=== PATIENT | male | born 1975 | race Caucasian/White ===

== ENCOUNTER 2024-06-10 23:59 | Inpatient (IN) | payer OTHER ==
[~2024-06-10] VITALS: Ht 177.8 cm; Wt 140.0 kg
[2024-06-11] VITALS (9 sets, daily range): BP systolic 132–178; BP diastolic 62–96; PULSE 104–116; RESP 20–29; TEMP 99.8–99.9; O2SAT 96–98
[2024-06-11 01:04] LABS: BASOPHILS # (AUTO) 0.1 X10'3 (0-0.2); BASOPHILS % (AUTO) 0.6 % (0-1); EOSINOPHILS # (AUTO) 0.2 X10'3 (0-0.9); HEMATOCRIT 31.3 % (42.0-52.0); HEMOGLOBIN 10.8 g/dl (14.0-17.9); LYMPHOCYTES # (AUTO) 0.9 X10'3 (1.1-4.8); LYMPHOCYTES % (AUTO) 9.3 % (21-51); MEAN CORPUSCULAR HEMOGLOBIN 38.3 PG (27.0-31.0); MEAN CORPUSCULAR HGB CONC 34.4 g/dL (33.0-36.5); MEAN CORPUSCULAR VOLUME 111.4 FL (78-98); MEAN PLATELET VOLUME 9.5 FL (7.4-10.4); MONOCYTES # (AUTO) 0.8 X10'3 (0-0.9); MONOCYTES % (AUTO) 8.5 % (2-12); NEUTROPHILS # (AUTO) 7.3 X10'3 (1.8-7.7); NEUTROPHILS % (AUTO) 79.6 % (42-75); PLATELET COUNT 110 X10'3 (140-440); RED BLOOD COUNT 2.81 X10'6 (4.70-6.10); WHITE BLOOD COUNT 9.1 X10'3 (4.5-11.0)
[2024-06-11] MEDS ORDERED: morphine 2 MG/ML inj. syringe IV PRN ×2 (01:35)
[2024-06-11] MEDS ORDERED: magnesium sulf-water 4G/100mL 100 ML IV PRN (01:35)
[2024-06-11] MEDS ORDERED: ondansetron/PF 4mg/2ml inj IV PRN (01:35)
[2024-06-11] MEDS ORDERED: magnesium hydroxide 30ml (MOM) UD suspension PO PRN (01:35)
[2024-06-11] MEDS ORDERED: acetaminophen 325mg tablet PO PRN (01:35)
[2024-06-11] MEDS ORDERED: mag hydrox/Alum hydrox/simeth 30ml oral suspension PO PRN (01:35)
[2024-06-11 01:47] LABS: ALANINE AMINOTRANSFERASE 46 U/L (12-78); ALBUMIN 2.5 G/DL (3.4-5.0); ALKALINE PHOSPHATASE 248 IU/L (46-116); ANION GAP 9 (8-16); ASPARTATE AMINO TRANSFERASE 201 U/L (10-37); BILIRUBIN,TOTAL 10.8 MG/DL (0.1-1.0); BLOOD UREA NITROGEN 6 MG/DL (7-18); BUN/CREATININE RATIO 6.1 (10.0-20.0); CALCIUM 8.1 MG/DL (8.5-10.1); CHLORIDE 97 MMOL/L (99-107); CREATININE 0.98 MG/DL (0.60-1.10); GLUCOSE 121 MG/DL (70-104); POTASSIUM 3.2 MMOL/L (3.5-5.1); SODIUM 136 MMOL/L (135-145); TOTAL CARBON DIOXIDE 30.2 MMOL/L (24-32); eCRCL 94 ML/MIN; eGFR 81 ML/MIN
[2024-06-11 01:49] LABS: ALBUMIN/GLOBULIN RATIO 0.6 (1.1-1.5)
[2024-06-11] MEDS: PERFLUTREN PROTEIN-A MICROSPHR (Optison) 0.22 MG/ML 3ML VIAL IV ONE (01:53)
[2024-06-11] MEDS: normal saline 1000ml 1,000 ML IV SCH (02:19)
[2024-06-11 02:28] LABS: MAGNESIUM 1.1 MG/DL (1.5-2.4)
[2024-06-11 02:33] LABS: APTT 33 SECONDS (22-32); INR 1.7 INR; PROTHROMBIN TIME 17.2 SECONDS (9.0-12.0)
[2024-06-11 02:46] LABS: HEMOGLOBIN A1C 5.1 % (4.5-6.2); POTASSIUM 3.2 MMOL/L (3.5-5.1)
[2024-06-11 03:18] LABS: PLATELET ESTIMATE DECREASED
[2024-06-11 03:19] LABS: POLYCHROMASIA FEW
[2024-06-11 03:20] LABS: TARGET CELLS FEW
[2024-06-11] MEDS ORDERED: LORazepam 2 mg/ml vial IV PRN (04:05)
[2024-06-11] MEDS ORDERED: dextrose 50%-water 50ml dispensing syringe IV PRN (04:05)
[2024-06-11] MEDS ORDERED: haloperidol lactate 5mg/ml inj IM PRN (04:05)
[2024-06-11] MEDS: spironolactone 25 MG tablet PO SCH (04:10)
[2024-06-11] MEDS: furosemide 10 MG/1 ML 10ml inj IV SCH (05:12)
[2024-06-11] MEDS: pantoprazole 40 MG vial IV SCH (05:16)
[2024-06-11] MEDS: potassium Cl 40MEQ/1/2NS 520ml 520 ML IV PRN (05:17)
[2024-06-11] MEDS: magnesium sulf-water 2g/50mL 50 ML IV PRN (05:20)
[2024-06-11] MEDS ORDERED: phytonadione inj. 1 MG in normal saline 100ml IV soln 100 ML IV ONE (05:55)
[2024-06-11 06:15] LABS: BILIRUBIN,URINE LARGE (Neg); CLARITY,URINE CLEAR (Clear); GLUCOSE, URINE NEGATIVE (Neg); KETONES,URINE TRACE mg/dl (Neg); LEUKOCYTE ESTERASE ,URINE NEGATIVE (Neg); NITRITES, URINE NEGATIVE (Neg); OCCULT BLOOD,URINE NEGATIVE (Neg); PH,URINE 8.5 (4.8-8.0); PROTEIN,URINE TRACE mg/dl (Neg)
[2024-06-11 06:24] LABS: COLOR,URINE AMBER (Yellow); UA COLLECTION TYPE CLN CATCH MIDSTREAM
[2024-06-11 06:28] LABS: BACTERIA,URINE NONE SEEN /HPF (Neg); RBC,URINE NONE SEEN /HPF (0-2); SQUAMOUS EPITHELIAL CELL,UR MODERATE /LPF (FEW); WBC,URINE NONE SEEN /HPF (0-4)
[2024-06-11 06:33] LABS: URINE AMPHETAMINE SCREEN NEGATIVE (Neg); URINE BARBITUATE SCREEN NEGATIVE (Neg); URINE BENZODIAZEPINES SCREEN NEGATIVE (Neg); URINE CANNABINOID SCREEN NEGATIVE (Neg); URINE COCAINE SCREEN NEGATIVE (Neg); URINE METHADONE SCREEN NEGATIVE (Neg); URINE OPIATE SCREEN NEGATIVE (Neg); URINE PHENCYCLIDINE SCREEN NEGATIVE (Neg)
[2024-06-11 07:43] LABS: THYROID STIMULATING HORMONE 31.49 ulU/ml (0.34-4.50)
[2024-06-11 07:53] LABS: ETHANOL < 10 MG/DL (<10)
[2024-06-11] MEDS: K and/or MAG REPLACEMENT MC SCH (08:00)
[2024-06-11] MEDS: thiamine 100mg/ml 2ml inj. IV SCH (08:18)
[2024-06-11] MEDS: docusate sod 100mg capsule PO SCH (08:18)
[2024-06-11] MEDS: folic acid 1mg/0.2ml inj IV SCH (09:20)
[2024-06-11] MEDS: MULTIVIT-MIN/FERROUS GLUCONATE 9 MG/15 ML LIQUID PO SCH (09:20)
[2024-06-11 11:48] LABS: BASOPHILS # (AUTO) 0.1 X10'3 (0-0.2); BASOPHILS % (AUTO) 0.7 % (0-1); EOSINOPHILS # (AUTO) 0.3 X10'3 (0-0.9); HEMATOCRIT 30.9 % (42.0-52.0); HEMOGLOBIN 10.6 g/dl (14.0-17.9); LYMPHOCYTES # (AUTO) 0.7 X10'3 (1.1-4.8); LYMPHOCYTES % (AUTO) 7.2 % (21-51); MEAN CORPUSCULAR HEMOGLOBIN 38.5 PG (27.0-31.0); MEAN CORPUSCULAR HGB CONC 34.2 g/dL (33.0-36.5); MEAN CORPUSCULAR VOLUME 112.4 FL (78-98); MEAN PLATELET VOLUME 8.8 FL (7.4-10.4); NEUTROPHILS # (AUTO) 7.5 X10'3 (1.8-7.7); NEUTROPHILS % (AUTO) 79.1 % (42-75); PLATELET COUNT 89 X10'3 (140-440); RED BLOOD COUNT 2.75 X10'6 (4.70-6.10); WHITE BLOOD COUNT 9.5 X10'3 (4.5-11.0)
[2024-06-11 11:57] LABS: ALANINE AMINOTRANSFERASE 44 U/L (12-78); ALBUMIN 2.5 G/DL (3.4-5.0); ALKALINE PHOSPHATASE 238 IU/L (46-116); ANION GAP 5 (8-16); ASPARTATE AMINO TRANSFERASE 195 U/L (10-37); BILIRUBIN,TOTAL 10.4 MG/DL (0.1-1.0); BLOOD UREA NITROGEN 6 MG/DL (7-18); BUN/CREATININE RATIO 6.5 (10.0-20.0); CHLORIDE 98 MMOL/L (99-107); CREATININE 0.92 MG/DL (0.60-1.10); GLUCOSE 110 MG/DL (70-104); SODIUM 134 MMOL/L (135-145); TOTAL CARBON DIOXIDE 31.4 MMOL/L (24-32); eCRCL 100 ML/MIN; eGFR 87 ML/MIN
[2024-06-11 12:00] LABS: ALBUMIN/GLOBULIN RATIO 0.6 (1.1-1.5); POTASSIUM 3.5 MMOL/L (3.5-5.1)
[2024-06-11] MEDS: magnesium Cl slow-release 64mg tablet PO PRN (12:21)
[2024-06-11] MEDS ORDERED: MULT-1085 PO (13:04)
[2024-06-11] MEDS ORDERED: LEVO150C4 PO (13:04)
[2024-06-11] MEDS: furosemide 40mg/4ml inj IV SCH (20:55)
[2024-06-12 07:14] LABS: BASOPHILS # (AUTO) 0.1 X10'3 (0-0.2); BASOPHILS % (AUTO) 0.7 % (0-1); EOSINOPHILS # (AUTO) 0.4 X10'3 (0-0.9); EOSINOPHILS % (AUTO) 4.2 % (0-6); HEMATOCRIT 29.6 % (42.0-52.0); LYMPHOCYTES # (AUTO) 0.9 X10'3 (1.1-4.8); LYMPHOCYTES % (AUTO) 8.9 % (21-51); MEAN CORPUSCULAR HEMOGLOBIN 38.4 PG (27.0-31.0); MEAN PLATELET VOLUME 9.1 FL (7.4-10.4); MONOCYTES # (AUTO) 0.9 X10'3 (0-0.9); MONOCYTES % (AUTO) 9.5 % (2-12); NEUTROPHILS # (AUTO) 7.4 X10'3 (1.8-7.7); NEUTROPHILS % (AUTO) 76.7 % (42-75); PLATELET COUNT 96 X10'3 (140-440); RED BLOOD COUNT 2.62 X10'6 (4.70-6.10); RED CELL DISTRIBUTION WIDTH 15.3 % (11.5-14.5); WHITE BLOOD COUNT 9.6 X10'3 (4.5-11.0)
[2024-06-12 08:00] VITALS: RESP 16; O2SAT 96
[2024-06-12] MEDS ORDERED: non-formulary drug (Multivitamin (Multi Vitamin Daily) 1 TAB) PO SCH (08:00)
[2024-06-12 08:09] LABS: ALANINE AMINOTRANSFERASE 34 U/L (12-78); ALBUMIN 2.2 G/DL (3.4-5.0); ALKALINE PHOSPHATASE 206 IU/L (46-116); ANION GAP 7 (8-16); ASPARTATE AMINO TRANSFERASE 157 U/L (10-37); BLOOD UREA NITROGEN 6 MG/DL (7-18); BUN/CREATININE RATIO 7.1 (10.0-20.0); CALCIUM 7.9 MG/DL (8.5-10.1); CHLORIDE 99 MMOL/L (99-107); CREATININE 0.84 MG/DL (0.60-1.10); GLUCOSE 100 MG/DL (70-104); HDL CHOLESTEROL 14 MG/DL (35-60); LDL CHOLESTEROL 106 MG/DL (50-100); MAGNESIUM 1.7 MG/DL (1.5-2.4); SODIUM 134 MMOL/L (135-145); TOTAL CARBON DIOXIDE 28.5 MMOL/L (24-32); eCRCL 110 ML/MIN; eGFR > 90 ML/MIN
[2024-06-12 08:12] LABS: ALBUMIN/GLOBULIN RATIO 0.5 (1.1-1.5); CHOL/HDL RATIO 11.8 (0.00-4.99); CHOLESTEROL 165 MG/DL (0-200); TOTAL PROTEIN 6.4 G/DL (6.4-8.2); TRIGLYCERIDES 177 MG/DL (20-135)
[2024-06-12 08:20] LABS: POTASSIUM 2.9 MMOL/L (3.5-5.1)
[2024-06-12] MEDS: levoTHYROXINE 75mcg tablet PO SCH (09:46)
[2024-06-12 15:30] VITALS: BP 138/88; PULSE 103; RESP 15; O2SAT 97
[2024-06-12 15:49] VITALS: BP 145/88; PULSE 102; RESP 16; O2SAT 97
[2024-06-12 16:40] LABS: GLUCOSE,BODY FLUID 105 MG/DL; LDH,BODY FLUID 105 U/L; TOTAL PROTEIN,BODY FLUID 2.7 G/DL
[2024-06-12 17:15] LABS: BF RBC COUNT 1515 /CU MM; BF WBC COUNT 129 /CU MM (0-1000); BFAPPEAR CLOUDY; BFCOLOR YELLOW; BFSOURCE ASCITES FLD; BFVOLUME 60 ML
[2024-06-12 17:16] LABS: LYMPHOCYTES,BODY FLUID 38 %; MONOCYTES,BODY FLUID 53 %; NEUTROPHILS,BODY FLUID 9 %
[2024-06-12 18:00] VITALS: BP 122/74; PULSE 107; RESP 25; TEMP 97.8; O2SAT 93
[2024-06-12] MEDS: potassium Cl 20 mEq SR tablet PO PRN (21:52)
[2024-06-12 22:00] VITALS: BP 121/64; PULSE 99; RESP 19; TEMP 97.3; O2SAT 94
[2024-06-13] VITALS (8 sets, daily range): BP systolic 106–135; BP diastolic 57–83; PULSE 93–107; RESP 16–20; TEMP 97.3–98.1; O2SAT 94–100
[2024-06-13 05:37] LABS: HBSAG SCREEN Negative (Negative); HEPATITIS C VIRUS ANTIBODY Non Reactive (Non Reactive)
[2024-06-13 06:38] LABS: BASOPHILS # (AUTO) 0.2 X10'3 (0-0.2); BASOPHILS % (AUTO) 1.6 % (0-1); EOSINOPHILS # (AUTO) 0.3 X10'3 (0-0.9); HEMATOCRIT 29.8 % (42.0-52.0); HEMOGLOBIN 10.3 g/dl (14.0-17.9); LYMPHOCYTES % (AUTO) 10.1 % (21-51); MEAN CORPUSCULAR HEMOGLOBIN 39.3 PG (27.0-31.0); MEAN CORPUSCULAR HGB CONC 34.5 g/dL (33.0-36.5); MEAN CORPUSCULAR VOLUME 113.8 FL (78-98); MEAN PLATELET VOLUME 8.7 FL (7.4-10.4); MONOCYTES # (AUTO) 1.1 X10'3 (0-0.9); MONOCYTES % (AUTO) 11.8 % (2-12); NEUTROPHILS % (AUTO) 73.5 % (42-75); PLATELET COUNT 96 X10'3 (140-440); RED BLOOD COUNT 2.61 X10'6 (4.70-6.10); RED CELL DISTRIBUTION WIDTH 15.4 % (11.5-14.5); WHITE BLOOD COUNT 9.5 X10'3 (4.5-11.0)
[2024-06-13 07:03] LABS: ALANINE AMINOTRANSFERASE 37 U/L (12-78); ALBUMIN 2.3 G/DL (3.4-5.0); ALKALINE PHOSPHATASE 206 IU/L (46-116); ANION GAP 10 (8-16); ASPARTATE AMINO TRANSFERASE 153 U/L (10-37); BILIRUBIN,TOTAL 9.6 MG/DL (0.1-1.0); BLOOD UREA NITROGEN 8 MG/DL (7-18); BUN/CREATININE RATIO 10.5 (10.0-20.0); CHLORIDE 97 MMOL/L (99-107); CREATININE 0.76 MG/DL (0.60-1.10); GLUCOSE 89 MG/DL (70-104); MAGNESIUM 1.6 MG/DL (1.5-2.4); POTASSIUM 3.3 MMOL/L (3.5-5.1); SODIUM 134 MMOL/L (135-145); TOTAL CARBON DIOXIDE 27.2 MMOL/L (24-32); eCRCL 121 ML/MIN; eGFR > 90 ML/MIN
[2024-06-13 07:12] LABS: ALBUMIN/GLOBULIN RATIO 0.5 (1.1-1.5); TOTAL PROTEIN 6.5 G/DL (6.4-8.2)
[2024-06-13] MEDS: potassium Cl 20 mEq SR tablet PO PRN (08:18)
[2024-06-13] MEDS: pantoprazole 40mg Tablet.DR PO SCH (08:18)
[2024-06-13 08:29] LABS: TOTAL CELLS COUNTED 100
[2024-06-13 08:30] LABS: HYPOCHROMASIA 1+; PLATELET ESTIMATE DECREASED
[2024-06-13] MEDS: furosemide 40mg/4ml inj IV SCH (16:47)
[2024-06-14 06:04] LABS: BASOPHILS # (AUTO) 0.1 X10'3 (0-0.2); BASOPHILS % (AUTO) 0.7 % (0-1); EOSINOPHILS # (AUTO) 0.3 X10'3 (0-0.9); EOSINOPHILS % (AUTO) 3.8 % (0-6); HEMATOCRIT 28.9 % (42.0-52.0); HEMOGLOBIN 9.8 g/dl (14.0-17.9); LYMPHOCYTES # (AUTO) 0.8 X10'3 (1.1-4.8); LYMPHOCYTES % (AUTO) 9.6 % (21-51); MEAN CORPUSCULAR HEMOGLOBIN 38.7 PG (27.0-31.0); MEAN CORPUSCULAR VOLUME 113.8 FL (78-98); MEAN PLATELET VOLUME 8.7 FL (7.4-10.4); MONOCYTES % (AUTO) 11.9 % (2-12); NEUTROPHILS # (AUTO) 6.5 X10'3 (1.8-7.7); PLATELET COUNT 106 X10'3 (140-440); RED BLOOD COUNT 2.54 X10'6 (4.70-6.10); RED CELL DISTRIBUTION WIDTH 15.2 % (11.5-14.5); WHITE BLOOD COUNT 8.8 X10'3 (4.5-11.0)
[2024-06-14 06:19] LABS: ALANINE AMINOTRANSFERASE 38 U/L (12-78); ALBUMIN 2.2 G/DL (3.4-5.0); ALKALINE PHOSPHATASE 203 IU/L (46-116); ANION GAP 8 (8-16); ASPARTATE AMINO TRANSFERASE 142 U/L (10-37); BILIRUBIN,TOTAL 9.5 MG/DL (0.1-1.0); BLOOD UREA NITROGEN 10 MG/DL (7-18); BUN/CREATININE RATIO 12.2 (10.0-20.0); CALCIUM 8.4 MG/DL (8.5-10.1); CHLORIDE 98 MMOL/L (99-107); CREATININE 0.82 MG/DL (0.60-1.10); GLUCOSE 97 MG/DL (70-104); MAGNESIUM 1.6 MG/DL (1.5-2.4); POTASSIUM 3.5 MMOL/L (3.5-5.1); SODIUM 132 MMOL/L (135-145); TOTAL CARBON DIOXIDE 26.3 MMOL/L (24-32); eCRCL 113 ML/MIN; eGFR > 90 ML/MIN
[2024-06-14 06:20] LABS: ALBUMIN/GLOBULIN RATIO 0.5 (1.1-1.5); TOTAL PROTEIN 6.5 G/DL (6.4-8.2)
[2024-06-14 08:00] VITALS: RESP 18; O2SAT 97
[2024-06-14] MEDS: predniSONE 20 mg tablet PO SCH (09:09)
[2024-06-14] MEDS: spironolactone 25 MG tablet PO SCH (09:13)
[2024-06-14 17:00] VITALS: BP 148/76; PULSE 97; RESP 22; TEMP 97.6; O2SAT 99
[2024-06-14 18:00] VITALS: BP 145/83; PULSE 95; RESP 18; TEMP 97.8; O2SAT 95
[2024-06-14 20:00] VITALS: RESP 18; O2SAT 95
[2024-06-14 22:00] VITALS: BP 127/78; PULSE 89; RESP 18; TEMP 97.4; O2SAT 96
[2024-06-15] VITALS (8 sets, daily range): BP systolic 116–135; BP diastolic 63–83; PULSE 89–99; RESP 16–20; TEMP 97.1–99.5; O2SAT 95–98
[2024-06-15 05:57] LABS: BASOPHILS % (AUTO) 0.4 % (0-1); EOSINOPHILS # (AUTO) 0.1 X10'3 (0-0.9); EOSINOPHILS % (AUTO) 0.8 % (0-6); HEMATOCRIT 29.5 % (42.0-52.0); LYMPHOCYTES # (AUTO) 0.9 X10'3 (1.1-4.8); LYMPHOCYTES % (AUTO) 9.4 % (21-51); MEAN CORPUSCULAR HEMOGLOBIN 38.4 PG (27.0-31.0); MEAN CORPUSCULAR HGB CONC 33.9 g/dL (33.0-36.5); MEAN CORPUSCULAR VOLUME 113.2 FL (78-98); MEAN PLATELET VOLUME 8.8 FL (7.4-10.4); MONOCYTES # (AUTO) 1.1 X10'3 (0-0.9); MONOCYTES % (AUTO) 11.8 % (2-12); NEUTROPHILS # (AUTO) 7.1 X10'3 (1.8-7.7); NEUTROPHILS % (AUTO) 77.6 % (42-75); PLATELET COUNT 117 X10'3 (140-440); WHITE BLOOD COUNT 9.2 X10'3 (4.5-11.0)
[2024-06-15 06:25] LABS: ALANINE AMINOTRANSFERASE 43 U/L (12-78); ALBUMIN 2.2 G/DL (3.4-5.0); ALKALINE PHOSPHATASE 203 IU/L (46-116); ANION GAP 5 (8-16); ASPARTATE AMINO TRANSFERASE 136 U/L (10-37); BILIRUBIN,TOTAL 8.7 MG/DL (0.1-1.0); BLOOD UREA NITROGEN 9 MG/DL (7-18); CALCIUM 8.7 MG/DL (8.5-10.1); CHLORIDE 98 MMOL/L (99-107); GLUCOSE 110 MG/DL (70-104); MAGNESIUM 1.9 MG/DL (1.5-2.4); POTASSIUM 3.6 MMOL/L (3.5-5.1); SODIUM 132 MMOL/L (135-145); TOTAL CARBON DIOXIDE 29.3 MMOL/L (24-32); eCRCL 103 ML/MIN; eGFR 90 ML/MIN
[2024-06-15 06:26] LABS: ALBUMIN/GLOBULIN RATIO 0.5 (1.1-1.5); TOTAL PROTEIN 6.6 G/DL (6.4-8.2)
[2024-06-15] MEDS: spironolactone 50 MG tablet PO SCH (12:49)
[2024-06-16 02:00] VITALS: BP 130/82; PULSE 85; RESP 18; TEMP 97.2; O2SAT 96
[2024-06-16 06:00] VITALS: BP 109/65; PULSE 92; RESP 21; TEMP 98.6; O2SAT 95
[2024-06-16 06:12] LABS: BASOPHILS # (AUTO) 0.1 X10'3 (0-0.2); BASOPHILS % (AUTO) 0.8 % (0-1); EOSINOPHILS # (AUTO) 0.2 X10'3 (0-0.9); EOSINOPHILS % (AUTO) 2.7 % (0-6); HEMATOCRIT 30.4 % (42.0-52.0); HEMOGLOBIN 10.4 g/dl (14.0-17.9); LYMPHOCYTES % (AUTO) 10.9 % (21-51); MEAN CORPUSCULAR HEMOGLOBIN 38.9 PG (27.0-31.0); MEAN CORPUSCULAR HGB CONC 34.1 g/dL (33.0-36.5); MEAN CORPUSCULAR VOLUME 113.8 FL (78-98); MEAN PLATELET VOLUME 8.6 FL (7.4-10.4); MONOCYTES # (AUTO) 1.3 X10'3 (0-0.9); MONOCYTES % (AUTO) 14.9 % (2-12); NEUTROPHILS # (AUTO) 6.3 X10'3 (1.8-7.7); NEUTROPHILS % (AUTO) 70.7 % (42-75); PLATELET COUNT 130 X10'3 (140-440); RED BLOOD COUNT 2.67 X10'6 (4.70-6.10); RED CELL DISTRIBUTION WIDTH 15.1 % (11.5-14.5); WHITE BLOOD COUNT 8.8 X10'3 (4.5-11.0)
[2024-06-16 06:35] LABS: ALANINE AMINOTRANSFERASE 44 U/L (12-78); ALBUMIN 2.1 G/DL (3.4-5.0); ALKALINE PHOSPHATASE 192 IU/L (46-116); ANION GAP 3 (8-16); ASPARTATE AMINO TRANSFERASE 128 U/L (10-37); BILIRUBIN,TOTAL 6.9 MG/DL (0.1-1.0); BLOOD UREA NITROGEN 13 MG/DL (7-18); BUN/CREATININE RATIO 12.3 (10.0-20.0); CALCIUM 8.2 MG/DL (8.5-10.1); CHLORIDE 98 MMOL/L (99-107); CREATININE 1.06 MG/DL (0.60-1.10); GLUCOSE 115 MG/DL (70-104); POTASSIUM 3.3 MMOL/L (3.5-5.1); SODIUM 131 MMOL/L (135-145); TOTAL CARBON DIOXIDE 29.6 MMOL/L (24-32); eCRCL 87 ML/MIN; eGFR 74 ML/MIN
[2024-06-16 06:43] LABS: ALBUMIN/GLOBULIN RATIO 0.5 (1.1-1.5); TOTAL PROTEIN 6.5 G/DL (6.4-8.2)
[2024-06-16 08:00] VITALS: RESP 16; O2SAT 95
[2024-06-16] MEDS ORDERED: potassium Cl 40MEQ/1/2NS 520ml 520 ML IV PRN (08:30)
[2024-06-16] MEDS ORDERED: potassium Cl 20 mEq SR tablet PO PRN (08:30)
[2024-06-16 10:08] VITALS: BP 128/77
[2024-06-16] MEDS: potassium Cl 20 mEq SR tablet PO PRN (10:08)
[2024-06-16 11:00] VITALS: BP 133/85; PULSE 90; RESP 20; TEMP 97.9; O2SAT 97
[2024-06-16] MEDS ORDERED: POTA-192 PO (12:57)
[2024-06-16] MEDS ORDERED: PANT40TA54 PO (12:57)
[2024-06-16] MEDS ORDERED: SPIR50TA5 PO (12:57)
[2024-06-16] MEDS ORDERED: PRED20TA PO ×2 (12:57→13:18)
[2024-06-16] MEDS ORDERED: FURO-150 PO (13:18)
[2024-06-16 13:23] VITALS: BP 133/85; PULSE 90; RESP 20; TEMP 97.9; O2SAT 97
[2024-06-16] MEDS ORDERED: K and/or MAG REPLACEMENT MC SCH (20:00)
== END 2024-06-16 14:50 | disposition home or self-care (01) | DRG 433 ==
LOC: ER 06-11 → ED HOLD 06-11 01:44 → EDBEDREQ 06-11 10:20 → PCU 3S 06-11 19:55
PROVIDERS: ADMIT Surgery Surgical Critical Care; ATTEND Registered Nurse Psychiatric/Mental Health
PROC: 0W9G3ZZ Drainage of Peritoneal Cavity, Percutaneous Approach (ICD-10-PCS; principal; 2024-06-12)
DX: K70.31 Alcoholic cirrhosis of liver with ascites (principal); E87.1 Hypo-osmolality and hyponatremia; Z68.41 Body mass index [BMI] 40.0-44.9, adult; D69.6 Thrombocytopenia, unspecified; E03.9 Hypothyroidism, unspecified; E66.9 Obesity, unspecified; E88.09 Other disorders of plasma-protein metabolism, not elsewhere classified; R79.1 Abnormal coagulation profile; F10.20 Alcohol dependence, uncomplicated; R74.01 Elevation of levels of liver transaminase levels; K72.10 Chronic hepatic failure without coma
CPT/HCPCS: 36415; 49083; 71045; 76705; 80053; 80061; 80305; 80320; 81001; 82945; 82948; 83036; 83615; 83735; 84132; 84157; 84443; 85007; 85008; 85025; 85610; 85730; 86803; 87070; 87081; 87340; 87522; 89051; 93005; 93306; 96374; 99285; G0378; J1940; J2470; J3411; J3480; J3490; J7030; J7512